=== PATIENT | female | born 1960 | race Two or more races ===

== ENCOUNTER 2016-10-31 10:37 | Emergency (ER) | payer BC ==
[2016-10-31 11:39] VITALS: BP 126/66
--- NOTE | 2016-10-31 14:49 | UC ---
Ankur Yoder Matthew, scribed for Keke Barraza DO on 10/31/16 at 1230 . Back Pain HPI - HPI Summary HPI Summary: A 56 y/o female presents to [facility] with constant, gradually worsening left lower back pain since 10/28/16. The pain is rated 6-7/10 in severity, described as dull and spasmodic, and does not radiate. The pain worsens with going from sitting to standing, causing 10/10 pain and pain described as shooting. The pain also worsens with side bending to the left and rotating to the right. The patient state that she pulled her left lower back on 10/28/16, while weight lifting. She was squatting when the injury occurred. The pain progressively worsened after the initially onset. The patient took Tylenol and applied a heating pad, which she believes may have worsened the symptom. Associated symptoms include nausea secondary to pain. The patient denies numbness/tingling, weakness, lightheadedness, fever, chills, chest pain, SOB, abdominal pain, and urinary symptoms. The patient does not tolerate ibuprofen well causing abdominal pain. - History of Current Complaint Chief Complaint: UCBackPain Stated Complaint: BACK PAIN Time Seen by Provider: 10/31/16 12:07 Hx Obtained From: Patient ?: No Onset/Duration: Gradual Onset, Lasting Days - since 10/28/16, Still Present Timing: Constant Severity Initially: Moderate Severity Currently: Moderate Pain Intensity: 7 Pain Scale Used: 0-10 Numeric Back Pain: Is Discrete @ - right lower back Character: Sharp, Spasmodic Aggravating: Movement, Bending Associated Signs And Symptoms: Negative: Swelling, Redness, Bruising, Fever, Weakness, Numbness, Tingling, Abdominal Pain, Flank Pain, Bladder Incontinence, Bowel Incontinence, Pain with Weight Bearing - Allergies/Home Medications Allergies/Adverse Reactions: Allergies Allergy/AdvReac Type Severity Reaction Status Date / Time No Known Allergies Allergy Verified 04/11/13 13:13 PMH/Surg Hx/FS Hx/Imm Hx Previously Healthy: Yes Endocrine History Of: Denies: Diabetes, Thyroid Disease Cardiovascular History Of: Denies: Cardiac Disorders, Hypertension Respiratory History Of: Denies: COPD, Asthma GI/ History Of: Denies: Ulcer - Surgical History Surgical History: Yes Surgery Procedure, Year, and Place: X2 - Family History Known Family History: Negative: Cardiac Disease, Hypertension, Diabetes Family History: FHx of asthma - Social History Alcohol Use: Weekly Substance Use Type: None Smoking Status (MU): Never Smoked Tobacco Review of Systems Constitutional: Negative Skin: Negative Eyes: Negative ENT: Negative Respiratory: Negative Cardiovascular: Negative Gastrointestinal: Negative Genitourinary: Negative Motor: Negative Neurovascular: Negative Musculoskeletal: Myalgia - Left lower back pain Neurological: Negative Psychological: Negative All Other Systems Reviewed And Are Negative: Yes Physical Exam Triage Information Reviewed: Yes Appearance: Well-Appearing, Well-Nourished, Pain Distress - mild to mod Vital Signs: Initial Vital Signs Temp 98.6 F 10/31/16 11:31 Pulse 67 10/31/16 11:31 Resp 18 10/31/16 11:31 BP 126/66 10/31/16 11:31 Pulse Ox 100 10/31/16 11:31 Vital Signs Reviewed: Yes Eyes: Positive: Conjunctiva Clear. Negative: Discharge ENT: Positive: Hearing grossly normal. Negative: Muffled/hoarse voice Neck: Positive: Supple, Nontender Respiratory: Positive: Lungs clear, Normal breath sounds, No respiratory distress, No accessory muscle use Cardiovascular: Positive: RRR, No Murmur Musculoskeletal: Positive: Strength Intact, Other: - restricted ROM with flexion , left sided bending, and right rotation. Tender boggy SI joint,sacrum flexed with left sided flexion; Neurological: Positive: Alert, Muscle Tone Normal, Other: - strength and sensation intact bilaterally Psychological Exam: Normal Psychological: Positive: Age Appropriate Behavior Skin Exam: Normal Skin: Positive: Other - warm, dry, normal color Back Pain Course/Dx - Differential Dx/Diagnosis Differential Diagnosis/HQI/PQRI: Arthritis, Strain, Sprain Provider Diagnoses: sacroiilitits Discharge - Discharge Plan Condition: Stable Disposition: HOME Prescriptions: Cyclobenzaprine TAB* [Flexeril TAB*] 10 mg PO TID PRN #30 tab PRN Reason: Pain HYDROcodone/ACETAMIN 5-325 MG* [[place] 5-325 TAB*] 1 tab PO Q6H PRN #14 tab MDD 4 TABS PRN Reason: Pain Patient Education Materials: Sacroiliitis (ED) Referrals: Brian Lam MD [Primary Care Provider] - (FOLLOW UP IN 1-2 WEEKS. YOU MAY WANT TO REQUEST PHYSICAL THERAPY IF YOU ARE NOT IMPROVING.) Additional Instructions: MUSCLE RELAXERS: Muscle relaxing medications are usually prescribed for acute muscle spasm or injury to the neck and back. They are often combined with antiinflammatory pain medication for increased relief. You may stop the muscle relaxer when the pain and stiffness have improved. Start the medication again if spasms recur. Muscle relaxers may cause drowsiness, especially with the first dose. Do not operate machinery or drive while under the effects of the medication. Most muscle relaxers last up to 24 hours. Do not combine the medication with alcohol. ORAL NARCOTIC MEDICATION: You have been given a prescription for pain control. This medication is a narcotic. It's best taken with food, as nausea can result if taken on an empty stomach. Don't operate machinery or drive within six hours of taking this medication. Do not combine this medicine with alcohol, or with any medication which can cause sedation (such as cold tablets or sleeping pills) unless you get permission from the physician. Narcotics tend to cause constipation. If possible, drink plenty of fluids and eat a diet high in fiber and fruits. WE CAN NOT GIVE YOU NSAIDS(ANTIINFLAMMATORIES MEDS) BECAUSE IT CAUSES PAIN IN YOUR STOMACH BUT YOUR CAN TRY TURMERIC CAPSULES. YOU WOULD LIKELY BENEFIT FROM OSTEOPATHIC MANIPULATION. WE RECOMMEND THAT YOU FIND AN OSTEOPATHIC PHYSICIAN IN YOUR AREA WHO FOCUSES EXCLUSIVELY ON OSTEOPATHIC MANIPULATION. SOMEONE WITH EXPERTISE IN CRAINIAL(AND SACRAL), LYMPHATIC, MYOFACIAL AND VISCERAL WORK The documentation as recorded by the Ankur landeros Matthew accurately reflects the service I personally performed and the decisions made by me, Keke Barraza DO.
== END 2016-10-31 13:07 | disposition home or self-care (01) ==
LOC: UCEAST 10:37
DX: M46.1 Sacroiliitis, not elsewhere classified (principal); X58.XXXA Exposure to other specified factors, initial encounter; Y93.B9 Activity, other involving muscle strengthening exercises; Y92.9 Unspecified place or not applicable; Y99.9 Unspecified external cause status
CPT/HCPCS: 99212; G0463

== ENCOUNTER 2024-11-05 08:25 | Observation (INO) ==
[~2024-11-05 08:25] MED LIST: NS 0.45% 1000 ml BAG 1,000 ML IV SCH; Naloxone 0.4 mg VIAL 0.4 mg/ml 1 ml VIAL IV PRN; Ondansetron 4 mg VIAL 2 MG/ML 2 ml VIAL IV PRN; ROPIVACAINE 5 MG/ML 30 ML BTL (0.5%) ONE; fentaNYL 100 mcg/2 ml 50 MCG/ML VIAL IV PRN
[2024-11-05] MEDS ORDERED: ceFAZolin 2 GM PREMIX 2 GM/50 ML BAG ONE (08:34)
[2024-11-05] MEDS ORDERED: Midazolam 2 mg/2 ml VIAL 1 mg/ml 2 ml VIAL (2 mg) ONE ×2 (08:49→10:21)
[2024-11-05] MEDS ORDERED: Rocuronium 50 mg VIAL 10 mg/ml 5 ml VIAL (50 mg) ONE (08:49)
[2024-11-05 09:08] LABS: Rapid COVID-19 Molecular Undetected (Undetected)
[2024-11-05] MEDS ORDERED: ROPIVACAINE 5 MG/ML 30 ML BTL (0.5%) ONE (10:21)
[2024-11-05] MEDS ORDERED: fentaNYL 100 mcg/2 ml 50 MCG/ML VIAL ONE (10:21)
[2024-11-05] MEDS ORDERED: Dexamethasone IV 4 MG/ML VIAL 1 ml VIAL ONE (10:21)
[2024-11-05] MEDS ORDERED: Morphine 2 MG/ML SYRINGE IV PRN (11:01)
[2024-11-05] MEDS ORDERED: Ondansetron 4 mg VIAL 2 MG/ML 2 ml VIAL IV PRN (11:01)
[2024-11-05] MEDS ORDERED: Ondansetron ODT 4 mg TAB 4 MG TAB PO PRN (11:01)
[2024-11-05] MEDS ORDERED: Calcium Carb (TUMS) 500 mg CHEW TAB PO PRN (11:01)
[2024-11-05] MEDS ORDERED: Lactulose 30 ml UDC PO PRN (11:01)
[2024-11-05] MEDS ORDERED: methylPREDNISolone ACETATE 40 mg/ml 1 ml VIAL **not IV ONE (11:09)
[2024-11-05] MEDS ORDERED: Lidocaine 1% MPF 2 ML VIAL ONE (11:09)
[2024-11-05] MEDS ORDERED: Lidocaine 1% MPF 5 ML VIAL ONE (11:09)
[2024-11-05] MEDS ORDERED: Lidocaine 2% PF 5 ML VIAL ONE (11:16)
[2024-11-05] MEDS ORDERED: Propofol 10 MG/ML 20 ML BTL ONE (13:03)
[2024-11-05] MEDS: Buffered Lidocaine 1% SYRIN 1 ml INTRADERM ONE (13:56)
[2024-11-05] MEDS: Acetaminophen IV 1 GM/100ML 1,000 MG/100 ML BAG IV ONE (13:56)
[2024-11-05] MEDS: Lactated Ringers 1000 ml BAG 1,000 ML IV SCH ×2 (13:57→15:05)
[2024-11-05] MEDS: Magnesium Hydroxide LIQ 30 ML UDC PO PRN (15:05)
[2024-11-05] MEDS: ceFAZolin 2 GM PREMIX 2 GM/50 ML BAG IV SCH (21:16)
[2024-11-05] MEDS: Magnesium Hydroxide LIQ 30 ML UDC PO SCH (21:22)
[2024-11-06 06:28] LABS: Calcium 8.7 mg/dL (8.6-10.3); Creatinine, Serum 0.8 mg/dL (0.51-0.95); Potassium 4.4 mmol/L (3.5-5.0); eGFR CKD-EPI 82.2 (>60)
[2024-11-06 07:01] LABS: Hematocrit 36.5 % (35-45); Hemoglobin 11.7 g/dL (11.5-14.3); Mean Platelet Volume 9.7 fL (7.5-11.2); Platelet Count 190 10^3/uL (150-450)
[2024-11-06] MEDS: Vitamin THERAPEUTIC TAB PO SCH (09:23)
[2024-11-06 09:55] VITALS: BP 100/66
[2024-11-06 13:48] LABS: Hepatitis C Antibody Negative (Negative)
== END 2024-11-06 14:00 | disposition home or self-care (01) ==
LOC: OR 08:25 → SSU 08:25
PROVIDERS: ADMIT Orthopaedic Surgery Adult Reconstructive Orthopaedic Surgery; ATTEND Orthopaedic Surgery Adult Reconstructive Orthopaedic Surgery